=== PATIENT | female | born 1975 | race Caucasian/White ===

== ENCOUNTER 2017-04-20 11:56 | Emergency (ER) | payer SELFPAY ==
[2017-04-20 12:04] VITALS: BP 101/58; TEMP 98.4; O2SAT 98
--- NOTE | 2017-04-20 12:42 | C.PDOC ---
History Of Present Illness 41 y/o female, uzbek speaker, history is obtained via computer translation. Pt w/PMHx of psoriasis, arthritis, presents to ED for evaluation of localized right shoulder pain for 2 years. Patient states pain is worse mostly with movement and has worsen for a few days. Pt admits, recently noted pain radiates down to right arm. Patient denies known trauma, injury, fever, chills, skin changes, CP, SOB, dyspnea, diaphoresis, palpitation, denies weakness , sensory or vascular deficits to Right arm, denies any other complaints at this time. Time Seen by Provider: 04/20/17 12:07 Chief Complaint (Nursing): Upper Extremity Problem/Injury History Per: Patient History/Exam Limitations: no limitations Onset/Duration Of Symptoms: Days Current Symptoms Are (Timing): Still Present Past Medical History Reviewed: Historical Data, Nursing Documentation, Vital Signs Vital Signs: Last Vital Signs Temp 98.4 F 04/20/17 12:01 Pulse 72 04/20/17 13:47 Resp 18 04/20/17 13:47 BP 101/58 L 04/20/17 12:01 Pulse Ox 98 04/20/17 13:47 Family History: States: No Known Family Hx - Social History Hx Alcohol Use: No Hx Substance Use: No - Immunization History Hx Tetanus Toxoid Vaccination: No Hx Influenza Vaccination: No Hx Pneumococcal Vaccination: No Review Of Systems Except As Marked, All Systems Reviewed And Found Negative. Constitutional: Negative for: Fever, Chills Musculoskeletal: Positive for: Shoulder Pain, Arm Pain. Negative for: Hand Pain Skin: Negative for: Rash Neurological: Negative for: Weakness, Numbness Physical Exam - Physical Exam Appears: Well, Non-toxic, No Acute Distress Skin: Normal Color, Warm, Dry, No Ecchymosis Head: Normacephalic Eye(s): bilateral: PERRL Nose: No Flaring Oral Mucosa: Moist Neck: No Midline Cervical Tenderness, No Paracervical Tenderness, No Step Off Deformity, Supple Chest: Symmetrical, No Deformity, No Tenderness Cardiovascular: Rhythm Regular Respiratory: No Decreased Breath Sounds, No Accessory Muscle Use, No Stridor, No Wheezing Back: No CVA Tenderness, No Vertebral Tenderness, No Muscle Spasm, No Paraspinal Tenderness Extremity: Normal ROM (RUE), Tenderness (tenderness over Right superior shoulder. No defomrity, no skin changes.), Capillary Refill (less than 2sec to Right hand), No Deformity, No Swelling Neurological/Psych: Oriented x3, Normal Speech, Normal Motor, Normal Sensation, Normal Reflexes ED Course And Treatment O2 Sat by Pulse Oximetry: 98 Pulse Ox Interpretation: Normal - Other Rad Right shoulder X-Ray: Interpreted by Me, Viewed By Me Interpretation: no acute fx or dislocation C-spine X-Ray: Interpreted by Me, Viewed By Me Interpretation: no acute fx or sublux Progress Note: On re-evaluation, pt is afebirle, hemodynamicaly stable. Non- toxic. AMbulatory in ED with stable gait. Head: AT/NC. neck: (-) midline tenderness. RUE: FAROM, no neurovascular deficits. Neuorlogicaly intact. Imaging review and appears normal. Pt advised on course of ds. ref. to f/u with PMD and Ortho in2 -3 days for re-eavl. return to ED if any new changes. Disposition Counseled Patient/Family Regarding: Diagnosis, Need For Followup, Rx Given - Disposition Referrals: Elidia Metz [facility] [Outside] [facility] [Outside] Disposition: HOME/ ROUTINE Disposition Time: 13:18 Condition: STABLE Additional Instructions: Right arm rest, avoid lifting Take medication as prescribed Follow up with PMD, Ortho in 2 -3 days for re-evaluation. Return to ED if any worsening or new changes. Prescriptions: Prednisone [Deltasone] 20 mg PO DAILY #3 tablet traMADol [Ultram] 50 mg PO BID #7 tab Instructions: Rotator Cuff Injury (ED), Tendinitis (ED) Forms: [employer] (Guatemalan) - Clinical Impression Clinical Impression: Shoulder tendonitis - Scribe Statement The provider has reviewed the documentation as recorded by the Lisa Quiroz All medical record entries made by the Emekaibmelissa were at my direction and personally dictated by me. I have reviewed the chart and agree that the record accurately reflects my personal performance of the history, physical exam, medical decision making, and the department course for this patient. I have also personally directed, reviewed, and agree with the discharge instructions and disposition.
[2017-04-20 13:47] VITALS: PULSE 72; RESP 18
--- NOTE | 2017-04-20 13:47 | RAD ---
PROCEDURE: Radiographs of the Right Shoulder HISTORY: pain COMPARISON: None available. FINDINGS: BONES: No acute displaced fracture. The distal clavicle and underlying ribs appear intact. JOINTS: No acute dislocation. SOFT TISSUES: Soft tissues appear unremarkable. No evidence of radiopaque foreign body. IMPRESSION: No acute displaced fracture or dislocation evident. If symptoms persist or if there is continued clinical concern, x-ray follow-up in 7-10 days should be considered.
--- NOTE | 2017-04-20 13:49 | RAD ---
PROCEDURE: Cervical Spine Radiographs. HISTORY: Pain. COMPARISON: None available. FINDINGS: BONES: Motion limits evaluation. Straightening of the normal cervical lordosis may be related to muscle spasm or positioning. No acute displaced fracture identified. Dens tip obscured. DISC SPACES: Unremarkable. SOFT TISSUES: Unremarkable. No prevertebral soft tissue swelling. OTHER FINDINGS: None. IMPRESSION: Limited study. Straightening of the normal cervical lordosis may be related to muscle spasm or positioning.
== END 2017-04-20 13:48 | disposition home or self-care (01) ==
LOC: C.ER 11:56
DX: M75.91 Shoulder lesion, unspecified, right shoulder (principal)